=== PATIENT | female | born 1975 | race American Indian/Alaskan Native ===

== ENCOUNTER 2016-07-25 17:08 | Emergency (ER) | payer SELFPAY ==
[2016-07-25 18:11] LABS: Urine Drugs of Abuse Note Disclamer
[2016-07-25 18:15] VITALS: BP 136/75
[2016-07-25 18:28] LABS: Alanine Aminotransferase 17 units/L (7-56); Albumin 4.1 g/dL (3.9-5); Albumin/Globulin Ratio 1.3 %; Alkaline Phosphatase 85 units/L (35-129); Anion Gap 17 mmol/L; Bilirubin,Total < 0.20 mg/dL (0.1-1.2); Blood Urea Nitrogen 7 mg/dL (7-17); Calcium 8.9 mg/dL (8.4-10.2); Carbon Dioxide 27 mmol/L (22-30); Chloride 101.4 mmol/L (98-107); Glucose 80 mg/dL (65-100); Potassium 3.4 mmol/L (3.6-5.0); Sodium 142 mmol/L (137-145); Total Protein 7.2 g/dL (6.3-8.2)
[2016-07-25 18:35] LABS: Hematocrit 25.8 % (30.3-42.9); Hemoglobin 7.8 gm/dl (10.1-14.3); Mean Corpuscular HGB Conc 30 % (30-34); Mean Corpuscular Volume 75 fl (79-97); Platelet Count 509 K/mm3 (140-440); Red Blood Count 3.46 M/mm3 (3.65-5.03); White Blood Count 4.4 K/mm3 (4.5-11.0)
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
[2016-07-25 18:57] LABS: Bacteria,Urine 1+ /HPF (Negative); Bilirubin,Urine NEG (Negative); Blood,Urine LG (Negative); Ketones,Urine NEG (Negative); Leukocyte Esterase,Urine MOD (Negative); Nitrite,Urine NEG (Negative); Urobilinogen,Urine < 2.0 mg/dL (<2.0)
[2016-07-25 19:03] LABS: RBC,Urine > 182.0 /HPF (0.0-6.0)
[2016-07-25 19:11] LABS: Mean Corpuscular Hemoglobin 23 pg (28-32); Red Cell Distribution Width 25.7 % (13.2-15.2)
--- NOTE | 2016-07-25 19:26 | Cat Scan Report ---
FINAL REPORT PROCEDURE: CT head without contrast. TECHNIQUE: Computerized tomography of the head was performed without contrast material. HISTORY: Syncope. COMPARISON: No prior studies are available for comparison. FINDINGS: There is motion artifact on several of the images. The ventricles are normal in size. The hernandez matter and white matter appear normal. There are no mass lesions. There is no intracranial hemorrhage. There are no signs of acute infarction. The patient has had a previous right frontal-temporal craniotomy. The mastoid air cells and paranasal sinuses are clear as far as visualized. IMPRESSION: Normal study of the brain.
[2016-07-25 20:03] LABS: Basophils % (Manual) 0 % (0.0-1.8); Blastocytes % (Manual) 0 %
[2016-07-25 20:04] LABS: Anisocytosis 2+; Diff Status Complete; Elliptocytes 1+; Hypochromasia 1+; Platelet Estimate Appears Increased
== END 2016-07-25 19:40 | disposition home or self-care (01) ==
LOC: ED 17:08
DX: D50.0 Iron deficiency anemia secondary to blood loss (chronic) (principal); R55 Syncope and collapse; I10 Essential (primary) hypertension
CPT/HCPCS: 36415; 70450; 80053; 80307; 81001; 81025; 82140; 83735; 84443; 85007; 85025; 93005; 93010; 99285; G0480; 80320